=== PATIENT | female | born 1980 | race Caucasian/White ===

== ENCOUNTER → 2016-11-22 | Outpatient (CLI) | payer MEDICAID ==
[2016-11-22 15:57] LABS: Basophils % (A) 1 %; CH 28.2; CHCM 32.3; Eosinophils # (A) 0.2 k/uL (0-0.7); Eosinophils % (A) 3 %; HCT 40.1 % (34.0-46.0); HDW 2.59; HGB 12.8 gm/dL (11.4-16.0); Luc # (Auto) 0.08; Luc % (Auto) 1; Lymphocytes # (A) 1.4 k/uL (1.0-4.8); Lymphocytes % (A) 20 %; MCH 28.1 pg (25.0-35.0); MCV 87.7 fL (80.0-100.0); Mean Platelet Volume 8.3; Monocytes # (A) 0.4 k/uL (0-1.0); Monocytes % (A) 6 %; Neutrophils # (A) 4.9 k/uL (1.3-7.7); Neutrophils % (A) 70 %; RBC 4.57 m/uL (3.80-5.40); RDW 12.9 % (11.5-15.5); WBC (Perox) 6.96
[2016-11-22 15:58] LABS: ALT 62 U/L (9-52); AST 36 U/L (14-36); Alkaline Phosphatase 61 U/L (38-126); Amylase 31 U/L (30-110); Anion Gap 11 mmol/L; Blood Urea Nitrogen 20 mg/dL (7-17); Calcium 9.3 mg/dL (8.4-10.2); Carbon Dioxide 29 mmol/L (22-30); Chloride 101 mmol/L (98-107); Glucose 92 mg/dL (74-99); Non-African American GFR(MDRD) >60 (>60 ml/min/1.73 sqM); Potassium 3.9 mmol/L (3.5-5.1); Sodium 141 mmol/L (137-145); Total Bilirubin 0.4 mg/dL (0.2-1.3); Total Protein 7.3 g/dL (6.3-8.2)
== END | disposition home or self-care (01) ==
LOC: LABWHC1 15:23
PROVIDERS: ATTEND Physician Assistant
DX: R10.9 Unspecified abdominal pain (principal)
CPT/HCPCS: 36415; 80053; 82150; 83690; 85025

== ENCOUNTER → 2016-11-22 | Outpatient (CLI) | payer MEDICAID ==
--- NOTE | 2016-11-23 02:24 | US ---
EXAMINATION TYPE: US abdomen complete DATE OF EXAM: 11/22/2016 7:50 PM COMPARISON: Prior US in PACS CLINICAL HISTORY: Abd Pain R10.9. History of mononucleosis EXAM MEASUREMENTS: Liver Length: 15.6 cm Gallbladder Wall: 0.2 cm CBD: 0.5 cm Spleen: 12.9 cm Right Kidney: 10.3 x 4.8 x 6.4 cm Left Kidney: 10.5 x 4.0 x 4.5 cm cm TECHNOLOGIST IMPRESSION: Pancreas: Tail obscured by overlying bowel gas, visualized portions show no mass Liver: wnl Gallbladder: mobile stone visualized measuring 1.9 cm Evidence for sonographic Figueroa's sign: No CBD: wnl Spleen: Measuring upper limits of normal at 12.9 cm. Previously measured 13.4 cm on 09/22/2016 Right Kidney: No hydronephrosis or masses seen Left Kidney: No hydronephrosis or masses seen Upper IVC: wnl Abd Aorta: wnl The liver is homogenous. The intrahepatic portion of the IVC and proximal abdominal aorta are within normal limits. Common bile duct is unremarkable. The visualized portions of the pancreas are homoge nous. Kidneys are symmetric and free of hydronephrosis. No renal lesions are seen. IMPRESSION: There is a single large gallstone. No dilated ducts. No evidence of renal obstruction.
== END | disposition home or self-care (01) ==
LOC: RADUSWWP 19:46
PROVIDERS: ATTEND Internal Medicine
DX: K80.20 Calculus of gallbladder without cholecystitis without obstruction (principal)
CPT/HCPCS: 76700

== ENCOUNTER → 2016-11-30 | Outpatient (CLI) | payer MEDICAID ==
--- NOTE | 2016-11-30 15:14 | CT ---
EXAMINATION TYPE: CT abdomen w con DATE OF EXAM: 11/30/2016 3:04 PM HISTORY: LUQ pain CT DLP: 867.80mGycm Automated Exposure Control for Dose Reduction was Utilized. CONTRAST: CT scan of the abdomen is performed with IV Contrast, patient injected with 100 ml mL of Omnipaque 30 0. COMPARISON: Complete abdominal ultrasound November 22, 2016. FINDINGS: LUNG BASES: No significant abnormality is appreciated. LIVER/GB: Gallstone on ultrasound is less well-seen on CT. PANCREAS: No significant abnormality is seen. SPLEEN: Spleen is enlarged in size measuring 15.2 cm on coronal image 52, and has been prominent to m ildly enlarged on prior ultrasounds. ADRENALS: No significant abnormality is seen. KIDNEYS: No significant abnormality is seen. BOWEL: Oral contrast does not reach colonic level. There is no suspicious small or large bowel dilata tion. LYMPH NODES: No greater than 1cm abdominal lymph nodes are appreciated. OSSEOUS STRUCTURES: Some spurring in the lower thoracic spine is present. OTHER: No significant additional abnormality is seen. IMPRESSION: Splenomegaly is present perhaps slightly more prominent than prior studies otherwise unre markable study.
== END | disposition home or self-care (01) ==
LOC: RADCTMAIN 14:32
PROVIDERS: ATTEND Internal Medicine
DX: R16.1 Splenomegaly, not elsewhere classified (principal)
CPT/HCPCS: 74160; Q9967

== ENCOUNTER → 2017-10-04 | Outpatient (CLI) | payer MEDICAID ==
[2017-10-04 08:18] LABS: CH 28.3; CHCM 32.3; HCT 38.1 % (34.0-46.0); MCH 27.7 pg (25.0-35.0); MCHC 31.4 g/dL (31.0-37.0); Mean Platelet Volume 7.3; RBC 4.33 m/uL (3.80-5.40); RDW 12.9 % (11.5-15.5)
[2017-10-04 08:27] LABS: ALT 34 U/L (9-52); AST 25 U/L (14-36); Alkaline Phosphatase 53 U/L (38-126); Anion Gap 8 mmol/L; Blood Urea Nitrogen 14 mg/dL (7-17); Calcium 9.2 mg/dL (8.4-10.2); Carbon Dioxide 28 mmol/L (22-30); Chloride 104 mmol/L (98-107); Cholesterol 143 mg/dL (<200); Glucose 91 mg/dL (74-99); HDL Cholesterol 66 mg/dL (40-60); Non-African American GFR(MDRD) >60 (>60 ml/min/1.73 sqM); Potassium 4.1 mmol/L (3.5-5.1); Sodium 140 mmol/L (137-145); Total Bilirubin 0.4 mg/dL (0.2-1.3); Total Protein 6.5 g/dL (6.3-8.2)
== END | disposition home or self-care (01) ==
LOC: LABWHC1 07:31
PROVIDERS: ATTEND Physician Assistant
DX: Z00.00 Encounter for general adult medical examination without abnormal findings (principal); R63.5 Abnormal weight gain; Z13.220 Encounter for screening for lipoid disorders
CPT/HCPCS: 36415; 80053; 80061; 84439; 84443; 85027

== ENCOUNTER → 2018-01-20 | Outpatient (CLI) | payer MEDICAID ==
[2018-01-20 09:21] LABS: HCT 38.4 % (34.0-46.0); HGB 12.5 gm/dL (11.4-16.0); MCH 28.1 pg (25.0-35.0); MCHC 32.5 g/dL (31.0-37.0); MCV 86.6 fL (80.0-100.0); Mean Platelet Volume 7.6; Platelet Count 164 k/uL (150-450); RBC 4.44 m/uL (3.80-5.40); RDW 13.4 % (11.5-15.5); WBC 4.9 k/uL (3.8-10.6)
[2018-01-20 09:33] LABS: ALT 44 U/L (9-52); AST 39 U/L (14-36); Albumin 3.9 g/dL (3.5-5.0); Alkaline Phosphatase 53 U/L (38-126); Anion Gap 7 mmol/L; Blood Urea Nitrogen 18 mg/dL (7-17); Calcium 9.1 mg/dL (8.4-10.2); Carbon Dioxide 30 mmol/L (22-30); Chloride 104 mmol/L (98-107); Cholesterol 154 mg/dL (<200); Glucose 84 mg/dL (74-99); HDL Cholesterol 63 mg/dL (40-60); LDL Cholesterol,Calculated 80 mg/dL (0-99); Potassium 4.4 mmol/L (3.5-5.1); Sodium 141 mmol/L (137-145); Total Bilirubin 0.4 mg/dL (0.2-1.3); Total Protein 6.6 g/dL (6.3-8.2); Triglycerides 55 mg/dL (<150)
== END | disposition home or self-care (01) ==
LOC: LABWHC1 08:31
PROVIDERS: ATTEND Emergency Medicine
DX: R42 Dizziness and giddiness (principal)
CPT/HCPCS: 36415; 80053; 80061; 84443; 85027

== ENCOUNTER 2018-10-19 19:47 | Emergency (ER) | payer MEDICAID ==
[2018-10-19 19:53] VITALS: TEMP 98
--- NOTE | 2018-10-19 20:32 | ED ---
Chest Pain HPI - General Chief Complaint: Chest Pain Stated Complaint: Chest pain Time Seen by Provider: 10/19/18 20:04 Source: patient Mode of arrival: ambulatory Limitations: no limitations - History of Present Illness Initial Comments: Patient is a 37-year-old female presenting for chest pain. The patient states that she has had intermittent chest pain for the last month and there is no consistency to the quantity or quality although she does admit that it is worse whenever she has emotional times her her life. She states that it was especially bad because she recently lost her mother to multiple myeloma. However, today was she was at work, she started having the pain which is in her left breast dinner her left shoulder and then it was sharp. Sometimes it radiated to her neck but then it would radiate to the left flank. Again, there is no consistency to it and she denies any calf injury or recent manipulation by chiropractor. She also denies any infectious type symptoms such as coughing , congestion, fever/chills. - Related Data Home Medications Medication Instructions Recorded Confirmed Multivitamins, Thera [Multivitamin] 1 tab PO DAILY 05/07/14 10/19/18 Pantoprazole Sodium [Protonix] 1 tab PO DAILY 05/07/14 10/19/18 Calcium/Magnesium/Zinc 1 tab PO DAILY 10/19/18 10/19/18 [Pjcryro-Zafmfrugg-Pams Tablet] Doxycycline [Vibramycin] 100 mg PO BID 10/19/18 10/19/18 Tumeric (Unknown Dose) 1 tab PO DAILY 10/19/18 10/19/18 Allergies Allergy/AdvReac Type Severity Reaction Status Date / Time sulfamethoxazole Allergy Rash/Hives Verified 10/19/18 20:13 [From Bactrim] trimethoprim [From Bactrim] Allergy Rash/Hives Verified 10/19/18 20:13 Review of Systems ROS Statement: Those systems with pertinent positive or pertinent negative responses have been documented in the HPI. Constitutional: Negative for chills, fatigue and fever. HENT: Negative for congestion. Respiratory: Negative for chest tightness, shortness of breath and wheezing. Negative for cough Cardiovascular: Positive for chest pain and negative for palpitations. Gastrointestinal: Negative for abdominal pain. Negative for abdominal distention , diarrhea, nausea and vomiting. Genitourinary: Negative for dysuria. Musculoskeletal: Negative for back pain, neck pain and neck stiffness. Skin: Negative for color change. Neurological: Negative for dizziness, speech difficulty, weakness and light- headedness. Psychiatric/Behavioral: Negative for agitation and confusion. Negative for anxiety ROS Other: All systems not noted in ROS Statement are negative. EKG Findings - EKG Comments: EKG Findings:: EKG shows sinus bradycardia with a rate of 57 bpm, OK interval 144, QRS 86, QTC 416. Past Medical History Additional Past Medical History / Comment(s): palpitations History of Any Multi-Drug Resistant Organisms: None Reported Past Surgical History: No Surgical Hx Reported Past Psychological History: No Psychological Hx Reported Smoking Status: Never smoker Past Alcohol Use History: None Reported Past Drug Use History: None Reported General Exam - General Exam Comments Initial Comments: Constitutional: Pt is oriented to person, place, and time. Pt appears well- developed and well-nourished. No distress. HENT: Head: Normocephalic and atraumatic. Eyes: EOM are normal. Neck: Normal range of motion. Neck supple. Cardiovascular: Normal rate, regular rhythm, S1 normal, S2 normal and normal heart sounds. Exam reveals no gallop and no friction rub. No murmur heard. Pulmonary/Chest: Effort normal and breath sounds normal. No tachypnea and no bradypnea. No respiratory distress. No wheezes or rales noted. Abdominal: Soft. Bowel sounds are normal. Pt exhibits no shifting dullness, no distension, no pulsatile liver, no fluid wave, no abdominal bruit and no ascites. There is no tenderness. There is no rigidity, no rebound, no guarding, no tenderness at McBurney's point and negative Figueroa's sign. Musculoskeletal: Normal range of motion. Neurological: Pt is alert and oriented to person, place, and time. No cranial nerve deficit. Skin: Skin is warm and dry. No rash noted. Pt is not diaphoretic. No erythema. No pallor. Psychiatric: Pt has a normal mood and affect. Pt behavior is normal. Thought content normal. Limitations: no limitations Course Vital Signs 10/19/18 10/19/18 10/19/18 19:49 20:08 22:05 Temperature 98.0 F Pulse Rate 62 55 L Pulse Rate [ 56 L Credit Intern ] Respiratory 18 12 Rate Blood Pressure 123/80 111/64 O2 Sat by Pulse 100 98 Oximetry 10/19/18 23:22 Temperature Pulse Rate 57 L Pulse Rate [ Credit Intern ] Respiratory 15 Rate Blood Pressure 102/58 O2 Sat by Pulse 96 Oximetry Chest Pain MDM - MDM Laboratory studies showed that there was no significant electrolyte derangements and from a cardiac standpoint, d-dimer was noted to be negative as well as serial troponins. EKG also had no significant findings. Patient currently refused urine test as she states that she has had her tubes tied. Because the patient has a low heart score, patient can be discharged with close follow-up. It was explained that while there does not appear to be an emergent process, the etiology of the symptoms are still unclear but possibly related to musculoskeletal strain and may need further workup as an outpatient if symptoms continue. Explained all labs and diagnostic test results and that we will discharge the patient home and patient is to follow up with PCP in 1-2 days and return to the ED if symptoms worsen. Pt is agreeable to plan. Disposition Clinical Impression: Chest pain Disposition: HOME SELF-CARE Condition: Good Instructions: Chest Pain (ED) Is patient prescribed a controlled substance at d/c from ED?: No Referrals: Dionicio Saucedo MD [Primary Care Provider] - 1-2 days Time of Disposition: 00:11
[2018-10-19 21:01] LABS: ALT 46 U/L (9-52); AST 36 U/L (14-36); Alkaline Phosphatase 57 U/L (38-126); Anion Gap 8 mmol/L; Blood Urea Nitrogen 12 mg/dL (7-17); Calcium 9.1 mg/dL (8.4-10.2); Carbon Dioxide 26 mmol/L (22-30); Chloride 104 mmol/L (98-107); Glucose 93 mg/dL (74-99); Magnesium 1.9 mg/dL (1.6-2.3); Potassium 3.8 mmol/L (3.5-5.1); Sodium 138 mmol/L (137-145); Total Bilirubin 0.3 mg/dL (0.2-1.3); Total Protein 6.9 g/dL (6.3-8.2)
[2018-10-19 21:05] LABS: D-Dimer 0.55 mg/L FEU (<0.60); INR 0.9 (<1.2); Partial Thromboplastin Time 26.7 sec (22.0-30.0); Prothrombin Time 10.1 sec (9.0-12.0)
--- NOTE | 2018-10-19 21:05 | XR ---
EXAMINATION TYPE: XR chest 2V DATE OF EXAM: 10/19/2018 COMPARISON: 12/29/2012 HISTORY: Chest pain TECHNIQUE: Frontal and lateral views of the chest are obtained. FINDINGS: Heart and mediastinum are normal. Lungs are clear. Diaphragm is normal. Bony thorax is int act. IMPRESSION: Normal chest. No change.
[2018-10-19 21:16] LABS: Basophils % (A) 1 %; Eosinophils # (A) 0.2 k/uL (0-0.7); Eosinophils % (A) 2 %; HGB 12.1 gm/dL (11.4-16.0); Lymphocytes # (A) 1.9 k/uL (1.0-4.8); Lymphocytes % (A) 27 %; MCH 27.4 pg (25.0-35.0); MCHC 30.9 g/dL (31.0-37.0); MCV 88.5 fL (80.0-100.0); Mean Platelet Volume 6.8; Monocytes # (A) 0.4 k/uL (0-1.0); Monocytes % (A) 5 %; Neutrophils # (A) 4.3 k/uL (1.3-7.7); Neutrophils % (A) 62 %; Platelet Count 187 k/uL (150-450); RBC 4.41 m/uL (3.80-5.40); WBC 6.9 k/uL (3.8-10.6)
[2018-10-20 00:26] VITALS: BP 118/66; PULSE 56; RESP 18
== END 2018-10-20 00:28 | disposition home or self-care (01) ==
LOC: EC 19:47
DX: R07.9 Chest pain, unspecified (principal); Z79.899 Other long term (current) drug therapy; Z88.2 Allergy status to sulfonamides
CPT/HCPCS: 36415; 71046; 80053; 83735; 83880; 84484; 85025; 85379; 85610; 85730; 93005; 99285

== ENCOUNTER → 2018-10-30 | Outpatient (CLI) | payer MEDICAID ==
--- NOTE | 2018-10-30 10:37 | US ---
EXAMINATION TYPE: US gallbladder DATE OF EXAM: 10/30/2018 COMPARISON: CT 11/30/2016, US 11/22/2016 CLINICAL HISTORY: R07.9 Chest pain. EXAM MEASUREMENTS: Liver Length: 16.9 cm Gallbladder Wall: 0.2 cm CBD: 0.5 cm Right Kidney: 11.5 x 5.7 x 5.9 cm Pancreas: Tail obscured by overlying bowel gas, visualized portions wnl Liver: Homogeneous Gallbladder: Stone visualized measuring 1.8 cm Evidence for sonographic Figueroa's sign: No CBD: wnl, distal portion obscured by bowel gas Right Kidney: No hydronephrosis or masses seen IMPRESSION: Cholelithiasis without sonographic evidence of acute cholecystitis.
== END | disposition home or self-care (01) ==
LOC: RADUSWWP 08:15
PROVIDERS: ATTEND Internal Medicine
DX: K80.20 Calculus of gallbladder without cholecystitis without obstruction (principal)
CPT/HCPCS: 76705

== ENCOUNTER → 2018-10-31 | Outpatient (CLI) | payer MEDICAID ==
--- NOTE | 2018-10-31 11:49 | ECHOF ---
Referral Reason:R07.9 Chest pain MEASUREMENTS -------- HEIGHT: 170.2 cm WEIGHT: 131.5 kg BP: RVIDd: 3.0 cm (< 3.3) IVSd: 1.2 cm (0.6 - 1.1) LVIDd: 4.9 cm (3.9 - 5.3) LVPWd: 1.3 cm (0.6 - 1.1) IVSs: 1.5 cm LVIDs: 3.7 cm LVPWs: 1.5 cm LA Diam: 3.2 cm (2.7 - 3.8) LAESV Index (A-L): 28.05 ml/m Ao Diam: 3.1 cm (2.0 - 3.7) AV Cusp: 2.0 cm (1.5 - 2.6) LA Diam: 3.9 cm (2.7 - 3.8) MV EXCURSION: 21.866 mm (> 18.000) MV EF SLOPE: 108 mm/s (70 - 150) EPSS: 0.1 cm MV E Jas: 0.98 m/s MV DecT: 176 ms MV A Jas: 0.50 m/s MV E/A Ratio: 1.95 RAP: 5.00 mmHg RVSP: 21.36 mmHg FINDINGS -------- Sinus rhythm. This was a technically good study. LV size, wall thickness and systolic function are normal, with an EF greater than 55%. The left rissa tricular size is normal. The right ventricle is normal in size. The left atrial size is normal. Normal LA size by volume 22+/-6 ml/m2. The right atrial size is normal. The aortic valve is trileaflet, and appears structurally normal. No aortic stenosis or regurgitation. The mitral valve is normal. Mild mitral regurgitation is present. Trace tricuspid regurgitation present. There is no evidence of pulmonary hypertension. The right ventricular systolic pressure, as measured by Doppler, is 21.36mmHg. There is no pulmonic regurgitation present. The aortic root size is normal. There is no pericardial effusion. CONCLUSIONS -------- 1. Sinus rhythm. 2. This was a technically good study. 3. LV size, wall thickness and systolic function are normal, with an EF greater than 55%. 4. The left ventricular size is normal. 5. The left atrial size is normal. 6. Normal LA size by volume 22+/-6 ml/m2. 7. The right atrial size is normal. 8. The aortic valve is trileaflet, and appears structurally normal. No aortic stenosis or regurgitati on. 9. Mild mitral regurgitation is present. 10. Trace tricuspid regurgitation present. 11. There is no evidence of pulmonary hypertension. 12. There is no pulmonic regurgitation present. 13. The aortic root size is normal. 14. There is no pericardial effusion. MINK FARMER: Soo Glover RDCS
== END | disposition home or self-care (01) ==
LOC: RADECHMAIN 08:26
PROVIDERS: ATTEND Internal Medicine
DX: I34.0 Nonrheumatic mitral (valve) insufficiency (principal); R07.9 Chest pain, unspecified
CPT/HCPCS: 93306

== ENCOUNTER → 2019-01-16 | Outpatient (CLI) | payer MEDICAID ==
[2019-01-16 17:41] LABS: Magnesium 1.9 mg/dL (1.6-2.3)
--- NOTE | 2019-01-16 18:31 | XR ---
Lumbosacral spine HISTORY: Chronic low back pain, bilateral foot numbness 5 views of the lumbosacral spine Lumbar vertebral bodies show preserved height and bone mineralization. Minimal grade 1 anterolisthesi s L4-5. There is no evident spondylolysis. Sclerosis present in the posterior elements of the lower l umbar spine compatible with facet arthropathy. Some loss of disc height present L5-S1, there is mild spondylosis. IMPRESSION: Degenerative disc disease, facet arthropathy.
[2019-01-16 23:51] LABS: Folate, Serum 11.1 ng/mL
== END ==
LOC: RADXRMAIN 13:17
PROVIDERS: ATTEND Physician Assistant
DX: M51.36 Other intervertebral disc degeneration, lumbar region (principal); M46.96 Unspecified inflammatory spondylopathy, lumbar region; R20.2 Paresthesia of skin
CPT/HCPCS: 72110; 82607; 82746; 83735; 84443

== ENCOUNTER → 2019-10-08 | Outpatient (CLI) | payer MEDICAID ==
[2019-10-08 11:13] LABS: Appearance,Urine Clear (Clear); Bilirubin,Urine Negative (Negative); Blood,Urine Negative (Negative); Color,Urine Light Yellow; Glucose,Urine (UA) Negative (Negative); HCT 40.1 % (34.0-46.0); HGB 13.1 gm/dL (11.4-16.0); Ketones,Urine Negative (Negative); Leukocyte Esterase,Urine Negative (Negative); MCH 28.2 pg (25.0-35.0); MCHC 32.7 g/dL (31.0-37.0); Mean Platelet Volume 7.2; Nitrite,Urine Negative (Negative); Platelet Count 207 k/uL (150-450); Protein,Urine Negative (Negative); RBC 4.67 m/uL (3.80-5.40); RDW 12.7 % (11.5-15.5); Specific Gravity,Urine 1.016 (1.001-1.035); Urobilinogen,Urine <2.0 mg/dL (<2.0); WBC 6.6 k/uL (3.8-10.6)
[2019-10-08 15:59] LABS: African American GFR (CKD) 127.4 (60.0-200.0); Albumin 4.3 g/dL (3.80-4.90); Albumin/Globulin Ratio 2.05 (1.60-3.17); Anion Gap 6.5 mmol/L (4.00-12.00); BUN/Creat Ratio 21.43 Ratio (12.00-20.00); Carbon Dioxide 26.5 mmol/L (21.6-31.8); Chol/HDL Ratio 2.81; Globulin 2.1 g/dL (1.6-3.3); LDL Cholesterol,Calculated 86.2 mg/dL (0.0-131.0); Non-African American GFR(CKD) 109.9 (60.0-200.0); Potassium 4.5 mmol/L (3.5-5.5); Total Bilirubin 0.3 mg/dL (0.3-1.2); Total Protein 6.4 g/dL (6.2-8.2); VLDL Calculation 18.8 mg/dL (5.00-40.00)
[2019-10-08 16:06] LABS: T4, Free (Free Thyroxine) 1.2 ng/dL (0.80-1.80)
== END | disposition home or self-care (01) ==
LOC: LABWHC1 10:26
PROVIDERS: ATTEND Physician Assistant
DX: Z00.00 Encounter for general adult medical examination without abnormal findings (principal); R53.83 Other fatigue; Z13.220 Encounter for screening for lipoid disorders
CPT/HCPCS: 36415; 80053; 80061; 81003; 82306; 83036; 84439; 84443; 85027

== ENCOUNTER 2021-02-02 18:57 | Emergency (ER) | payer OTHER, MEDICAID ==
[2021-02-02 19:07] VITALS: BP 145/74; PULSE 64; RESP 18; TEMP 97.7
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
== END 2021-02-02 21:28 | disposition home or self-care (01) ==
LOC: EC 18:57
DX: M54.5 Low back pain (principal); M25.571 Pain in right ankle and joints of right foot; M25.561 Pain in right knee; M54.2 Cervicalgia; M54.6 Pain in thoracic spine; V89.2XXA Person injured in unspecified motor-vehicle accident, traffic, initial encounter; Y92.410 Unspecified street and highway as the place of occurrence of the external cause
CPT/HCPCS: 72082; 99283

== ENCOUNTER → 2021-08-10 | Outpatient (CLI) | payer MEDICAID ==
--- NOTE | 2021-08-14 09:47 | MM ---
Reason for exam: screening (asymptomatic). Baseline mammogram. History: Took hormonal contraceptives for 4 years beginning at age 24. Physical Findings: Nurse did not find any significant physical abnormalities on exam. MG 3D Screening Mammo W/Cad Bilateral CC and MLO view(s) were taken. There are scattered fibroglandular densities. There is no discrete abnormality. ASSESSMENT: Benign, BI-RAD 2 RECOMMENDATION: Routine screening mammogram of both breasts in 1 year.
== END | disposition home or self-care (01) ==
LOC: RADMAMWWP 12:44
PROVIDERS: ATTEND Family Medicine
DX: Z12.31 Encounter for screening mammogram for malignant neoplasm of breast (principal)
CPT/HCPCS: 77063; 77067

== ENCOUNTER → 2021-10-13 | Outpatient (CLI) | payer MEDICAID ==
--- NOTE | 2021-10-13 09:19 | US ---
EXAMINATION TYPE: US transvaginal DATE OF EXAM: 10/13/2021 COMPARISON: NONE CLINICAL HISTORY: 40-year-old female R10.2 Pelvic Pain N94.6 Dysmenorrhea, N93.9 Abnormal uterine. In creasing TECHNIQUE: Transvaginal (TV). Date of LMP: 10/02/21 FINDINGS: EXAM MEASUREMENTS: Uterus: 8.9 x 5.4 x 4.3 cm Endometrial Stripe: 1.2 cm Right Ovary: 3.2 x 2.0 x 2.0 cm Left Ovary: 4.3 x 3.0 x 3.3 cm 1. Uterus: Anteverted and otherwise wnl. Tiny 4 mm cervical nabothian cyst. 2. Endometrium: Appears slightly heterogeneous. Mildly thickened. 3. Right Ovary: 2.1 cm hypoechoic area. 4. Left Ovary: anechoic area 2.7 x 1.6 x 2.0 cm 5. Bilateral Adnexa: wnl 6. Posterior cul-de-sac: wnl IMPRESSION: 1. Slightly heterogeneous and mildly thickened endometrial stripe measuring 1.2 cm short correspond t o the secretory phase of the menstrual cycle. Clinically correlate. Given patient's symptoms and the slight heterogeneity, follow-up in 6-8 weeks to reassess the stripe. 2. A 2.7 cm dominant follicle or functional cyst of the left ovary. A 2.1 cm hypoechoic oval area in the right ovary could represent a hemorrhagic cyst/follicle. This should also be reassessed in 6-8 w [place] follow-up.
[2021-10-13 09:24] LABS: HCT 38.7 % (34.0-46.0); HGB 11.8 gm/dL (11.4-16.0); Hypochromasia Moderate; MCH 26.5 pg (25.0-35.0); MCHC 30.5 g/dL (31.0-37.0); Mean Platelet Volume 7.3; Platelet Count 204 k/uL (150-450); RBC 4.44 m/uL (3.80-5.40); RDW 13.7 % (11.5-15.5); WBC 6.4 k/uL (3.8-10.6)
[2021-10-13 09:35] LABS: ALT 19 U/L (4-34); AST 26 U/L (14-36); African American GFR (CKD) >90 (>60 ml/min/1.73 sqM); Albumin 3.7 g/dL (3.5-5.0); Alkaline Phosphatase 74 U/L (38-126); Anion Gap 6 mmol/L; Blood Urea Nitrogen 15 mg/dL (7-17); Calcium 8.9 mg/dL (8.4-10.2); Carbon Dioxide 24 mmol/L (22-30); Chloride 106 mmol/L (98-107); Glucose 102 mg/dL (74-99); Non-African American GFR(CKD) >90 (>60 ml/min/1.73 sqM); Potassium 4.2 mmol/L (3.5-5.1); Sodium 136 mmol/L (137-145); Total Bilirubin 0.5 mg/dL (0.2-1.3); Total Protein 6.6 g/dL (6.3-8.2)
[2021-10-13 09:52] LABS: HCG,Quantitative Serum <2.4 mIU/mL; T4, Free (Free Thyroxine) 0.93 ng/dL (0.78-2.19)
[2021-10-13 15:23] LABS: Chol/HDL Ratio 3.04 Ratio; LDL Cholesterol,Calculated 103.2 mg/dL (0.0-131.0)
== END | disposition home or self-care (01) ==
LOC: RADUSWWP 08:00
PROVIDERS: ATTEND Obstetrics & Gynecology
DX: R93.89 Abnormal findings on diagnostic imaging of other specified body structures (principal)
CPT/HCPCS: 36415; 76830; 80053; 80061; 84439; 84443; 84702; 85027

== ENCOUNTER → 2021-11-30 | Outpatient (CLI) | payer MEDICAID ==
[2021-11-30 23:21] LABS: Basophils # (A) 0.05 X 10*3/uL (0.00-0.10); Basophils % (A) 0.8 %; Eosinophils # (A) 0.21 X 10*3/uL (0.04-0.35); Eosinophils % (A) 3.2 %; HCT 38.6 % (37.2-46.3); HGB 11.8 g/dL (12.0-15.0); Immature Grans, Automated 0.3 %; Lymphocytes # (A) 1.52 X 10*3/uL (0.90-5.00); Lymphocytes % (A) 22.9 %; MCHC 30.6 g/dL (32.0-37.0); MCV 85.2 fL (80.0-97.0); Mean Platelet Volume 10.1 fL (9.5-12.2); Monocytes # (A) 0.48 X 10*3/uL (0.20-1.00); Monocytes % (A) 7.2 %; NRBC Per 100 WBC 0 /100 WBCS (0.0-0.0); Neutrophils # (A) 4.37 X 10*3/uL (1.80-7.70); Neutrophils % (A) 65.6 %; Platelet Count 234 X 10*3/uL (140-440); RBC 4.53 X 10*6/uL (4.10-5.20); RDW 13.2 % (11.5-14.5); WBC 6.65 X 10*3/uL (4.50-10.00)
== END | disposition home or self-care (01) ==
LOC: LABPAT 16:10
PROVIDERS: ATTEND Obstetrics & Gynecology
DX: Z01.812 Encounter for preprocedural laboratory examination (principal); N92.0 Excessive and frequent menstruation with regular cycle; N93.8 Other specified abnormal uterine and vaginal bleeding
CPT/HCPCS: 36415; 85025

== ENCOUNTER → 2021-12-04 | Day surgery (SDC) | payer MEDICAID, OTHER ==
[2021-11-30 10:28] VITALS: BMI 58.1
--- NOTE | 2021-11-30 13:47 | HP ---
HISTORY AND PHYSICAL HISTORY OF PRESENT ILLNESS: The patient is a 40-year-old 2, para 2-0-0-2, who presents to the office with a complaint of significantly dysfunctional uterine bleeding as well as menorrhagia. She initially had a discussion regarding options for treatment and has requested endometrial ablation. She underwent endometrial biopsy in the office, which was entirely negative. She was initially scheduled several weeks ago, but had a child come down with COVID and had to reschedule. PAST MEDICAL HISTORY: Significant for reflux, hypertension, some anxiety and depression, obesity, polycystic ovarian syndrome. PAST SURGICAL HISTORY: Significant only for wisdom teeth extraction. OBSTETRICAL HISTORY: 2, para 2-0-0-2 with two term vaginal deliveries without complications. Method of contraception is vasectomy. GYNECOLOGIC HISTORY: Unremarkable, with no history of any infections to include STDs. FAMILY HISTORY: Noncontributory. 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 She is a nonsmoker and denies any alcohol or other social concerns of any concern. CURRENT MEDICATIONS: Current medications include Protonix daily and Zoloft 50 mg daily. ALLERGIES: BACTRIM caused muscle cramps. REVIEW OF SYSTEMS: Confined to history of present illness. PHYSICAL EXAMINATION: Vital signs are stable. The patient is afebrile. In general, this is a well- developed, moderately obese white female in no acute distress. Her heart has a regular rhythm and rate without murmur. Her lungs are clear to auscultation bilaterally in all [place]. Her abdomen is nondistended, has normoactive bowel sounds, is soft, nontender, and without any palpable masses, hepatosplenomegaly, or hernias. Her extremities are without any cyanosis, clubbing or edema and are nontender to palpation bilaterally. Pelvic examination demonstrates normal external genitalia and BUS with normal vaginal mucosa and cervix. There is no cervical motion tenderness. The uterus is approximately 4 to 5 weeks in size, mid plane, mobile, nontender, normal in shape. The adnexa are normal and nontender without mass bilaterally. ASSESSMENT AND PLAN: Menorrhagia with dysfunctional uterine bleeding: We discussed multiple different options for treatment and she has opted to proceed with endometrial ablation, either NovaSure or Melvi, whichever is available. The risks and complications of the procedure have been thoroughly discussed, including the risks for bleeding, bleeding requiring transfusion, infection, and injury to local structures to specifically include uterine perforation, Asherman syndrome and subsequent hematometra. She has understood all of these concerns and has agreed to proceed. We are scheduled for surgery on the morning of December 04, 2021, for diagnostic hysteroscopy with most likely NovaSure endometrial ablation. MMODL / IJN: [id number] /
[~2021-12-04] MED LIST: Acetaminophen-Codeine 300-30mg TAB PO PRN; DEXAMETHASONE SOD PHOSPHATE 4 MG/ML 1 ML VIAL IV ONE; GLYCOPYRROLATE 0.2 MG/ML 2 ML VIAL ONE; HYDROmorphone 0.5 MG/0.5 ML SYRINGE IVP PRN; IBUPROFEN 600 MG TAB PO PRN; KETOROLAC 15 MG/ML 1 ML VIAL ONE; KETOROLAC 30 MG/ML 1 ML VIAL IVP PRN; LACTATED RINGERS 1,000 ML IV SCH; LIDOCAINE 1% (10MG/ML) FOR IV START INTRADERMA PRN; LIDOCAINE 1% INJ 10MG/ML (20 ML MDV) ONE; METOCLOPRAMIDE 5 MG/ML 2 ML VIAL IVP PRN; MIDAZOLAM 2 MG/2 ML VIAL ONE; NEOSTIGMINE 1 MG/ML 10 ML VIAL ONE; ONDANSETRON 4 MG/2 ML VIAL IVP ONE; ONDANSETRON 4 MG/2 ML VIAL IVP PRN; PROPOFOL 10 MG/ML 20 ML VIAL IV ONE; Pre Op ABX Message 1 EACH MISC MISCELLANE ONE; ROCURONIUM 10 MG/ML (5 ML VIAL) IV ONE; SCOPOLAMINE 1.5MG/72HR PATCH TRANSDERM ONE; SIMETHICONE 80 MG CHEWABLE PO PRN; SUCCINYLCHOLINE CHLORIDE VIAL 200 MG/10 ML VIAL IV ONE; diphenhydrAMINE 50 MG/ML 1 ML VIAL IVP PRN; fentaNYL (PF) 50 MCG/ML 2 ML AMP ONE
--- NOTE | 2021-12-04 09:48 | P.OP ---
Date of Procedure: 12/04/21 Preoperative Diagnosis: 1. Menorrhagia #2. Dysfunctional uterine bleeding Postoperative Diagnosis: Same Procedure(s) Performed: #1. Diagnostic hysteroscopy #2. NovaSure endometrial ablation Anesthesia: NATASHA Surgeon: Jose Alfredo Pryor Estimated Blood Loss (ml): 5 IV fluids (ml): 400 Urine output (ml): 75 Pathology: none sent Condition: stable Disposition: PACU Operative Findings: Preoperative pelvic examination demonstrated roughly 4-5 week midplane to slightly anteverted mobile normal shaped uterus with normal adnexa bilaterally. Intraoperatively, the uterine cavity was noted to be without pathology using the hysteroscope and the bilateral tubal ostia were seen. There is no evidence of fibroids or other concerns. The settings for the NovaSure tool after a sounded length of 8.5 cm and a cervical length of 3 cm were a length of 5.5 cm, a width of 4.4 cm for a total power 133 W. After a run time of 51 seconds, the base unit read "procedure complete." The postprocedural result appeared to be excellent. The patient is a borderline candidate for vaginal hysterectomy should become necessary and would likely benefit from a da Gilbert approach should it become necessary. Description of Procedure: The patient was prepped and draped in usual fashion after general endotracheal anesthesia was administered by the anesthesiologist. A weighted speculum was placed and the bladder drained of approximately 75 mL of clear jewell urine. The anterior lip the cervix was grasped with a single-tooth tenaculum and uterus sounded to approximate 8.5 cm with a cervical length of approximately 3 cm. S erial dilation was carried out to admit the diagnostic hysteroscope which was placed into the cavity and the cavity distended with saline. The bilateral tubal ostia were seen and there was no evidence of any pathology throughout cavity though there was some shaggy endometrium present. The scope was set aside and the NovaSure tool introduced into the endometrial cavity, opened, and seated well. The settings for the tool were as noted above with a length of 5.5 cm, a width of 4.4 cm, for a total power of 133 W. The cavity check was attempted and passed without difficulty. The tool was enabled, and the run was started. After total run time of 51 seconds, the base unit read "procedure complete." The 2 was closed, removed, and discarded. The diagnostic hysteroscope was replaced within the parametrial cavity and the findings appear to be excellent. All instrumentation was then removed. There is no ongoing bleeding from either the cervix nor from the tenaculum site. All sponge, ins trument, needle counts were correct. Assessment a blood loss for the case was less than 5 mL. There were no complications. The patient tolerated the procedure well and proceeded to the recovery room in stable condition.
[2021-12-04 10:50] VITALS: RESP 16; TEMP 97.6
[2021-12-04 12:23] VITALS: BP 129/76; PULSE 58
== END | disposition home or self-care (01) ==
LOC: OR 07:47
PROVIDERS: ATTEND Obstetrics & Gynecology
DX: N92.0 Excessive and frequent menstruation with regular cycle (principal); N93.8 Other specified abnormal uterine and vaginal bleeding; F32.9 Major depressive disorder, single episode, unspecified; E66.01 Morbid (severe) obesity due to excess calories; K21.9 Gastro-esophageal reflux disease without esophagitis
CPT/HCPCS: 58563; 81025; J2250; J0330; J1100; J2710; J2405; J2001; J3010; J1885; J2704; J1790

== ENCOUNTER → 2022-07-20 | Outpatient (CLI) | payer MEDICAID ==
--- NOTE | 2022-07-20 12:14 | US ---
EXAMINATION TYPE: US abdomen complete DATE OF EXAM: 07/20/2022 COMPARISON: CT, US CLINICAL HISTORY: R10.2 PELVIC PAIN R10.31 RLQ PAIN. Pain in the LLQ and LUQ x 4-5 months. Hx gallsto ne. Hx enlarged spleen. TECHNIQUE: Multiple sonographic images of the abdomen are obtained. FINDINGS: EXAM MEASUREMENTS: Liver Length: 17.0 cm . Normal less than 15.5 cm Gallbladder Wall: 0.21 cm CBD: 0.36 cm Spleen: 13.3 cm. Normal less than 12.5 cm. Right Kidney: 11.8 x 7.6 x 5.3 cm Left Kidney: 11.9 x 6.1 x 4.3 cm HOLLOW TILE PARTITION ERECTOR NOTES: Exam is limited due to gas and patient body habitus. Pancreas: Limited visibility. Liver: Appears coarse in echotexture with increased echogenicity. Measures upper limits of normal. Gallbladder: Hyperechoic focus seen with posterior shadowin.3 x 1.9 x 1.8 cm. Evidence for sonographic Figueroa's sign: No CBD: Appears wnl Spleen: Appears enlarged. Right Kidney: No hydronephrosis or masses seen Left Kidney: No hydronephrosis or masses seen Upper IVC: Appears wnl Abd Aorta: Appears wnl. Iliacs were obscured. . IMPRESSION: 1. Minimal hepatosplenomegaly. 2. Cholelithiasis
--- NOTE | 2022-07-20 13:42 | US ---
EXAMINATION TYPE: US pelvis complete transvag DATE OF EXAM: 07/20/2022 COMPARISON: CT, US 10/13/2021 CLINICAL HISTORY: R10.2 PELVIC PAIN R10.31 RLQ PAIN. Stabbing pelvic pain. Hx uterine ablation in Fe ruary of 2021. . TECHNIQUE: Transvaginal (TV) and Transabdominal (TA) . Transabdominal sonographic images of the pel vis were acquired. Transvaginal sonographic images were medically necessary to better assess the fol lowing anatomy: Uterus and ovaries, TV per order. Date of LMP: 11/02/2021 EXAM MEASUREMENTS: Uterus: 8.5 x 5.8 x 3.8 cm Endometrial Stripe: 0.57 cm Right Ovary: 4.1 x 2.5 x 2.6 cm Left Ovary: 3.4 x 1.8 x 2.3 cm 1. Uterus: Anteverted Appears heterogeneous. Subcentimeter anechoic areas seen in cervix. Finding s can be compatible with nabothian cysts. 2. Endometrium: Limited visibility 3. Right Ovary: Complex area seen: 2.6 x 1.8 x 1.9 cm. This is largely anechoic without posterior wa ll enhancement. Resolving cyst could be considered within the differential. Follow-up is recommended. 4. Left Ovary: Appears wnl. Spectral, color and waveform doppler imaging shows arterial and venous flow within the ovaries; the re is no evidence for ovarian torsion. Performed due to patient states stabbing pain within the pelvi s. 5. Bilateral Adnexa: Free fluid seen in the left adnexa. 6. Posterior cul-de-sac: Minimal fluid seen. IMPRESSION: 1. Mildly complex cyst left ovary. Follow-up exam in 6 weeks or following the next menstrual period t o be performed. 2. No suspicious acute changes identified.
[2022-07-20 14:28] LABS: Basophils # (A) 0.06 X 10*3/uL (0.00-0.10); Basophils % (A) 0.8 %; Eosinophils # (A) 0.19 X 10*3/uL (0.04-0.35); Eosinophils % (A) 2.5 %; HCT 38.1 % (37.2-46.3); HGB 12.3 g/dL (12.0-15.0); Immature Grans, Automated 0.5 %; Lymphocytes # (A) 1.56 X 10*3/uL (0.90-5.00); Lymphocytes % (A) 20.9 %; MCH 27.1 pg (27.0-32.0); MCHC 32.3 g/dL (32.0-37.0); MCV 83.9 fL (80.0-97.0); Monocytes # (A) 0.55 X 10*3/uL (0.20-1.00); Monocytes % (A) 7.4 %; NRBC Per 100 WBC 0 /100 WBCS (0.0-0.0); Neutrophils # (A) 5.07 X 10*3/uL (1.80-7.70); Neutrophils % (A) 67.9 %; Platelet Count 186 X 10*3/uL (140-440); RBC 4.54 X 10*6/uL (4.10-5.20); RDW 13.8 % (11.5-14.5); WBC 7.47 X 10*3/uL (4.50-10.00)
[2022-07-20 16:10] LABS: ALT 27 U/L (8-44); AST 22 U/L (13-35); Albumin 3.9 g/dL (3.8-4.9); Albumin/Globulin Ratio 1.95 (1.60-3.17); Alkaline Phosphatase 77 U/L (41-126); BUN/Creat Ratio 15.23 Ratio (12.00-20.00); Blood Urea Nitrogen 10.1 mg/dL (9.0-27.0); Calcium 8.8 mg/dL (8.7-10.3); Carbon Dioxide 24.7 mmol/L (20.0-27.5); Chloride 105 mmol/L (96-109); Chol/HDL Ratio 3.05 Ratio; Glucose 101 mg/dL (70-110); LDL Cholesterol,Calculated 98.9 mg/dL (0.0-131.0); Non-African American GFR(CKD) 109.6 (60.0-200.0); Potassium 4.1 mmol/L (3.5-5.5); Sodium 141 mmol/L (135-145); Total Protein 5.9 g/dL (6.2-8.2); VLDL Calculation 18.78 mg/dL (5.00-40.00)
[2022-07-20 22:25] LABS: Appearance,Urine Clear (Clear); Bilirubin,Urine Negative (Negative); Blood,Urine Negative (Negative); Color,Urine Yellow (Yellow); Ketones,Urine Negative (Negative); Nitrite,Urine Negative (Negative); Specific Gravity,Urine 1.007 (1.001-1.030); Urobilinogen,Urine 0.2 (0.2,1.0)
[2022-07-20 23:30] LABS: Bacteria,Urine None Seen /HPF (None Seen)
== END | disposition home or self-care (01) ==
LOC: RADUSWWP 09:44
PROVIDERS: ATTEND Family Medicine
DX: R16.2 Hepatomegaly with splenomegaly, not elsewhere classified (principal); K80.20 Calculus of gallbladder without cholecystitis without obstruction; R10.2 Pelvic and perineal pain; R10.31 Right lower quadrant pain
CPT/HCPCS: 76700; 76830; 76856; 80053; 80061; 81001; 82306; 83036; 84439; 84443; 84481; 85025

== ENCOUNTER → 2022-10-18 | Outpatient (CLI) | payer MEDICAID ==
--- NOTE | 2022-10-18 16:05 | US ---
EXAMINATION TYPE: US transvaginal DATE OF EXAM: 10/18/2022 COMPARISON: 07/20/2022 CLINICAL HISTORY: 41-year-old female R10.2 PELVIC AND PERINEAL PAIN. Short term follow up to right ov merissa cyst TECHNIQUE: Transvaginal (TV) Date of LMP: 09/29/2022 FINDINGS: EXAM MEASUREMENTS: Uterus: 7.2 x 3.5 x 4.0 cm Endometrial Stripe: 0.39 cm Right Ovary: 1.9 x 1.5 x 1.3 cm Left Ovary: 3.5 x 2.4 x 2.7 cm 1. Uterus: Anteverted. Mildly heterogeneous myometrium. 2. Endometrium: wnl 3. Right Ovary: wnl 4. Left Ovary: 2.1 x 1.6 x 1.5cm thick walled crenulated cyst with peripheral vascularity. 5. Bilateral Adnexa: wnl 6. Posterior cul-de-sac: wnl IMPRESSION: 1. Mildly heterogeneous myometrium may reflect small fibroid change. No discrete focal fibroid is see n. 2. Suspected 2.1 cm corpus luteum of the left ovary. The previous 2.6 cm cyst of the right ovary had a similar appearance and has resolved in the interval.
--- NOTE | 2022-10-19 11:55 | MM ---
Reason for Exam: Screening (asymptomatic). Last mammogram was performed 1 year(s) and 3 month(s) ago. Patient History: Menarche at age 9. First Full-Term at age 26. Hormonal Contraceptives for 4 years from age 24 until age 29. Last menstrual period: 09/29/2022 Risk Values: Kierra 5 year model risk: 0.7%. NCI Lifetime model risk: 12.0%. Prior Study Comparison: 08/10/2021 Bilateral Screening Mammogram, [facility]. Tissue Density: There are scattered fibroglandular densities. Findings: Analyzed By CAD. Pattern appears symmetrical and stable. Some chronic nodularity is in the upper left mediolateral oblique view. No suspicious groups of microcalcifications, spiculated or lobular masses, architectural distortion or other secondary signs of malignancy are mammographically apparent. Overall Assessment: Benign, BI-RAD 2 Management: Screening Mammogram of both breasts in 1 year. A negative mammogram report should not preclude additional follow up of suspicious palpable abnormalities. Patient should continue monthly self breast exam. A clinical breast exam by your physician is recommended on an annual basis and results should be correlated with mammographic findings. Electronically signed and approved by: Roshan Marin D.O. Radiologis
== END | disposition home or self-care (01) ==
LOC: RADMAMWWP 14:43
PROVIDERS: ATTEND Family Medicine
DX: Z12.31 Encounter for screening mammogram for malignant neoplasm of breast (principal); N83.201 Unspecified ovarian cyst, right side; N85.8 Other specified noninflammatory disorders of uterus
CPT/HCPCS: 76830; 77063; 77067

== ENCOUNTER → 2023-01-14 | Outpatient (CLI) | payer MEDICAID ==
[2023-01-15 05:21] LABS: Basophils # (A) 0.06 X 10*3/uL (0.00-0.10); Basophils % (A) 0.7 %; Eosinophils # (A) 0.35 X 10*3/uL (0.04-0.35); Eosinophils % (A) 4.3 %; HCT 37.9 % (37.2-46.3); Immature Grans, Automated 0.4 %; Lymphocytes # (A) 1.65 X 10*3/uL (0.90-5.00); Lymphocytes % (A) 20.5 %; MCHC 31.7 g/dL (32.0-37.0); MCV 88.3 fL (80.0-97.0); Mean Platelet Volume 10.4 fL (9.5-12.2); Monocytes # (A) 0.58 X 10*3/uL (0.20-1.00); Monocytes % (A) 7.2 %; NRBC Per 100 WBC 0 /100 WBCS (0.0-0.0); Neutrophils # (A) 5.39 X 10*3/uL (1.80-7.70); Neutrophils % (A) 66.9 %; Platelet Count 196 X 10*3/uL (140-440); RBC 4.29 X 10*6/uL (4.10-5.20); RDW 13.5 % (11.5-14.5); WBC 8.06 X 10*3/uL (4.50-10.00)
[2023-01-15 06:23] LABS: ALT 25 U/L (8-44); AST 26 U/L (13-35); African American GFR (CKD) 123.9 (60.0-200.0); Albumin/Globulin Ratio 1.74 (1.60-3.17); Alkaline Phosphatase 70 U/L (41-126); BUN/Creat Ratio 19.14 Ratio (12.00-20.00); Blood Urea Nitrogen 13.4 mg/dL (9.0-27.0); Carbon Dioxide 23.2 mmol/L (20.0-27.5); Chloride 102 mmol/L (96-109); Chol/HDL Ratio 3.31 Ratio; Globulin 2.3 g/dL (1.6-3.3); Glucose 88 mg/dL (70-110); LDL Cholesterol,Calculated 97.1 mg/dL (0.0-131.0); Non-African American GFR(CKD) 106.9 (60.0-200.0); Potassium 4.1 mmol/L (3.5-5.5); Sodium 138 mmol/L (135-145); Total Protein 6.3 g/dL (6.2-8.2)
== END | disposition home or self-care (01) ==
LOC: LABWHC1 14:34
PROVIDERS: ATTEND Physician Assistant
DX: E66.01 Morbid (severe) obesity due to excess calories (principal); E03.9 Hypothyroidism, unspecified
CPT/HCPCS: 36415; 80053; 80061; 82306; 83036; 84439; 84443; 84481; 85025

== ENCOUNTER 2024-10-08 10:09 | Emergency (ER) | payer MEDICAID ==
--- NOTE | 2024-10-08 10:31 | ED ---
URI HPI - General Chief Complaint: Upper Respiratory Infection Stated Complaint: cough, congestion Time Seen by Provider: 10/08/24 10:30 Source: patient, RN notes reviewed Mode of arrival: ambulatory Limitations: no limitations - History of Present Illness Initial Comments: 43-year-old female presented to the ER for evaluation of cough and congestion. Patient states since 10-02-2024 she has been having a persisting cough, congestion and chest congestion. She states this has progressively worsening. Patient has been seen by urgent care and diagnosed with a viral illness. She was instructed to take [id number] medications and Flonase. She states she has been taking [id number] DayQuil, NyQuil, ibuprofen and Tylenol. Altagracia lomas reports she will cough so hard it causes her to vomit. She denies known fevers admits to chills. No chest pain, shortness of breath, abdominal pain, constipation/diarrhea, urinary complaints or peripheral edema. - Related Data Home Medications Medication Instructions Recorded Confirmed Multivitamins, Thera [Multivitamin] 1 tab PO DAILY 05/07/14 12/04/21 Pantoprazole Sodium [Protonix] 40 mg PO DAILY 05/07/14 12/04/21 Sertraline HCl [Zoloft] 50 mg PO 1200 10/30/21 12/04/21 Allergies Allergy/AdvReac Type Severity Reaction Status Date / Time sulfamethoxazole Allergy Rash/Hives Verified 10/08/24 10:16 [From Bactrim] trimethoprim [From Bactrim] Allergy Rash/Hives Verified 10/08/24 10:16 Review of Systems ROS Statement: Those systems with pertinent positive or pertinent negative responses have been documented in the HPI. ROS Other: All systems not noted in ROS Statement are negative. Past Medical History Past Medical History: GERD/Reflux Additional Past Medical History / Comment(s): palpitations, IJRREGULAR, HEAVY MENSES. + COVID 11/01/21 History of Any Multi-Drug Resistant Organisms: None Reported Past Surgical History: No Surgical Hx Reported Past Anesthesia/Blood Transfusion Reactions: No Reported Reaction Past Psychological History: No Psychological Hx Reported Smoking Status: Never smoker - Past Family History Mother Family Medical History: Cancer General Exam Limitations: no limitations General appearance: alert, in no apparent distress ENT exam: Present: normal exam, normal oropharynx, mucous membranes moist, TM's normal bilaterally (Fluid behind membrane no erythema) Neck exam: Present: normal inspection. Absent: tenderness, meningismus, l ymphadenopathy Respiratory exam: Present: normal lung sounds bilaterally. Absent: respiratory distress, wheezes, rales, rhonchi, stridor Cardiovascular Exam: Present: regular rate, normal rhythm, normal heart sounds. Absent: systolic murmur, diastolic murmur, rubs, gallop, clicks Neurological exam: Present: alert, oriented X3, CN II-XII intact Skin exam: Present: warm, dry, intact, normal color. Absent: rash Course Vital Signs 10/08/24 10/08/24 10/08/24 10:12 10:41 12:14 Temperature 98.2 F 98.4 F Pulse Rate 82 76 Respiratory 16 18 18 Rate Blood Pressure 151/89 134/84 O2 Sat by Pulse 100 97 Oximetry Medical Decision Making - Medical Decision Making Was pt. sent in by a medical professional or institution (, PA, ECCLESIASTICAL WORKER, urgent care, hospital, or correction...) When possible be specific @ -No Did you speak to anyone other than the patient for history (EMS, parent, family, police, friend...)? What history was obtained from this source @ -No Did you review nursing and triage notes (agree or disagree)? Why? @ -I reviewed and agree with nursing and triage notes Were old charts reviewed (outside hosp., previous admission, EMS record, old EKG, old radiological studies, urgent care reports/EKG's, correction records)? Report findings @ -No old charts were reviewed Differential Diagnosis (chest pain, altered mental status, abdominal pain women, abdominal pain men, vaginal bleeding, weakness, fever, dyspnea, syncope, headache, dizziness, GI bleed, back pain, seizure, CVA, palpatations, mental health, musculoskeletal)? @ -COVID, RSV, influenza, viral sinusitis, pneumonia, strep pharyngitis, this list is not meant to be all-inclusive EKG interpreted by me (3pts min.). @ -None done X-rays interpreted by me (1pt min.). @ -CXR interpreted by me negative for focal consolidation, pneumothorax or pleural effusions. CT interpreted by me (1pt min.). @ -None done U/S interpreted by me (1pt. min.). @ -None done What testing was considered but not performed or refused? (CT, X-rays, U/S, labs)? Why? @ -None What meds were considered but not given or refused? Why? @ -None Did you discuss the management of the patient with other professionals (professionals i.e. , PA, ECCLESIASTICAL WORKER, lab, RT, psych nurse, criminal justice social worker, wage conciliator, teacher, gifts officer, onsite case manager)? Give summary @ -No Was smoking cessation discussed for >3mins.? @ -No Was critical care preformed (if so, how long)? @ -No Were there social determinants of health that impacted care today? How? (Homelessness, low income, unemployed, alcoholism, drug addiction, transportation, low edu. Level, literacy, decrease access to med. care, [facility], rehab)? @ -No Was there de-escalation of care discussed even if they declined (Discuss DNR or withdrawal of care, Hospice)? DNR status @ -No What co-morbidities impacted this encounter? (DM, HTN, Smoking, COPD, CAD, Cancer, CVA, ARF, Chemo, Hep., AIDS, mental health diagnosis, sleep apnea, morbid obesity)? @ -None Was patient admitted / discharged? Hospital course, mention meds given and route, prescriptions, significant lab abnormalities, going to OR and other pertinent info. @ -Discharge. 43-year-old female presented to ER for evaluation of cough. History and physical exam completed. Vitals within normal limits. Patient in no signs of acute distress. Exam unimpressive.Viral swab and chest x-ray obtained. Viral swabs negative. Chest x-ray negative. Patient is stable for discharge as symptoms likely viral in nature. Strict return parameters discussed. Patient discharged in stable condition with follow-up to PCP. Patient verbally expressed understanding and agreement with care plan. Case discussed with ED attending, Dr. Lockhart. Undiagnosed new problem with uncertain prognosis? @ -No Drug Therapy requiring intensive monitoring for toxicity (Heparin, Nitro, Insulin, Cardizem)? @ -No Were any procedures done? @ -No Diagnosis/symptom? @ -Acute viral sinusitis/viral illness Acute, or Chronic, or Acute on Chronic? @ -Acute Uncomplicated (without systemic symptoms) or Complicated (systemic symptoms)? @ -Uncomplicated Side effects of treatment? @ -No Exacerbation, Progression, or Severe Exacerbation? @ -No Poses a threat to life or bodily function? How? (Chest pain, [place], [place], pneumonia, PE, COPD, DKA, ARF, appy, cholecystitis, CVA, Diverticulitis, Homicidal, Suicidal, threat to staff... and all critical care pts) @ -No - Lab Data Lab Results 10/08/24 Range/Units 10:40 Influenza Type A (PCR) Not Detected (Not Detectd) Influenza Type B (PCR) Not Detected (Not Detectd) RSV (PCR) Not Detected (Not Detectd) SARS-CoV-2 (PCR) Not Detected (Not Detectd) - Radiology Data Radiology results: report reviewed, image reviewed Disposition Clinical Impression: Viral infection, Acute viral sinusitis Disposition: HOME SELF-CARE Condition: Stable Additional Instructions: I recommend using Flonase, hkda-nfh-kqsoxzn ibuprofen and Tylenol for symptom control. I also recommend nasal lavage. Follow-up with PCP. Return to the ER for any new or worsening symptoms. Is patient prescribed a controlled substance at d/c from ED?: No Referrals: Marv Regalado PAC [REFERRING] - 1-2 days Time of Disposition: 11:57
[2024-10-08 10:45] VITALS: RESP 18
--- NOTE | 2024-10-08 11:23 | XR ---
EXAMINATION TYPE: XR chest 2V DATE OF EXAM: 10/08/2024 11:08 AM COMPARISON: 10/19/2018 CLINICAL INDICATION: Female, 43 years old with history of cough, , TECHNIQUE: PA and lateral views FINDINGS: The cardiomediastinal silhouette, aorta, and pulmonary vasculature are within normal limits. Hazy den sities relating to overlying soft tissue. Otherwise, lungs and pleural spaces are clear. IMPRESSION: No acute cardiopulmonary process. [facility], , 10/08/2024 11:21 AM
[2024-10-08 12:17] VITALS: BP 134/84; PULSE 76; TEMP 98.4
== END 2024-10-08 12:15 | disposition home or self-care (01) ==
LOC: SUPCPDRO 10:09 → EC 10:09
DX: J01.90 Acute sinusitis, unspecified (principal); B97.89 Other viral agents as the cause of diseases classified elsewhere; Z88.1 Allergy status to other antibiotic agents; Z88.2 Allergy status to sulfonamides
CPT/HCPCS: 71046; 87636; 99283

== ENCOUNTER → 2024-11-04 | Outpatient (CLI) | payer MEDICAID ==
[2024-11-04 15:01] LABS: Basophils # (A) 0.07 X 10*3/uL (0.00-0.10); Basophils % (A) 0.9 %; Eosinophils # (A) 0.24 X 10*3/uL (0.04-0.35); Eosinophils % (A) 3.1 %; HCT 42.7 % (37.2-46.3); HGB 13.1 g/dL (12.0-15.0); Lymphocytes # (A) 1.53 X 10*3/uL (0.90-5.00); Lymphocytes % (A) 20.1 %; MCH 27.1 pg (27.0-32.0); MCHC 30.7 g/dL (32.0-37.0); MCV 88.4 FL (80.0-97.0); Mean Platelet Volume 10.7 FL (9.5-12.2); Monocytes # (A) 0.57 X 10*3/uL (0.20-1.00); Monocytes % (A) 7.5 %; NRBC Per 100 WBC 0 X 10*3/uL (0.00-0.01); Neutrophils # (A) 5.18 X 10*3/uL (1.80-7.70); Platelet Count 226 X 10*3/uL (140-440); RBC 4.83 X 10*6/uL (4.10-5.20); RDW 12.1 % (11.5-14.5); WBC 7.62 X 10*3/uL (4.50-10.00)
[2024-11-04 15:31] LABS: Appearance,Urine Clear (Clear); Bilirubin,Urine Negative (Negative); Blood,Urine Negative (Negative); Color,Urine Yellow (Yellow); Ketones,Urine Negative (Negative); Nitrite,Urine Negative (Negative); Specific Gravity,Urine 1.018 (1.001-1.030); Urobilinogen,Urine 0.2 E.U./DL
[2024-11-04 15:51] LABS: ALT 20 U/L (8-44); AST 20 U/L (13-35); Albumin 4.1 g/dL (3.8-4.9); Albumin/Globulin Ratio 1.64 Ratio (1.60-3.17); Alkaline Phosphatase 70 U/L (41-126); BUN/Creat Ratio 19.29 Ratio (12.00-20.00); Blood Urea Nitrogen 13.5 mg/dL (9.0-27.0); Carbon Dioxide 24.3 mmol/L (21.6-31.8); Chloride 107 mmol/L (96-109); Chol/HDL Ratio 3.42 Ratio; Globulin 2.5 g/dL (1.6-3.3); Glucose 110 mg/dL (70-110); LDL Cholesterol,Calculated 92.5 mg/dL (0.0-131.0); Potassium 4.6 mmol/L (3.5-5.5); Sodium 140 mmol/L (135-145); T4, Free (Free Thyroxine) 0.93 ng/dL (0.80-1.80); Total Bilirubin 0.3 mg/dL (0.3-1.2); Total Protein 6.6 g/dL (6.2-8.2); VLDL Calculation 15.04 mg/dL (5.00-40.00)
[2024-11-04 17:05] LABS: Bacteria,Urine 1+ (None Seen)
== END | disposition home or self-care (01) ==
LOC: LABWHC1 09:07
PROVIDERS: ATTEND Physician Assistant
DX: Z00.00 Encounter for general adult medical examination without abnormal findings (principal); E03.9 Hypothyroidism, unspecified
CPT/HCPCS: 36415; 80053; 80061; 81001; 82306; 83036; 84439; 84443; 84481; 85025

== ENCOUNTER 2025-04-17 20:48 | Emergency (ER) | payer MEDICAID ==
[2025-04-17 20:52] VITALS: RESP 18; TEMP 97.7
[2025-04-17] MEDS: IBUPROFEN 600 MG TAB PO STA (21:13)
--- NOTE | 2025-04-17 21:32 | ED ---
General Adult HPI - General Chief complaint: Extremity Injury, Lower Stated complaint: R Foot Injury Time Seen by Provider: 04/17/25 20:54 Source: patient Mode of arrival: wheelchair Limitations: no limitations - History of Present Illness Initial comments: 44-year-old female presenting with chief complaint of right foot pain. [place] rock awkwardly twisting her foot. She is having pain mainly across the arch of her foot and then over the dorsal surface of the foot. No ankle pain. States that she tried to massage her foot and walk it off but she is having increasing pain with weightbearing and she is scheduled to work tomorrow so she wanted to make sure nothing was broken. No swelling or deformity. No break in the skin. - Related Data Home Medications Medication Instructions Recorded Confirmed Multivitamins, Thera [Multivitamin] 1 tab PO DAILY 05/07/14 12/04/21 Pantoprazole Sodium [Protonix] 40 mg PO DAILY 05/07/14 12/04/21 Sertraline HCl [Zoloft] 50 mg PO 1200 10/30/21 12/04/21 Allergies Allergy/AdvReac Type Severity Reaction Status Date / Time sulfamethoxazole Allergy Rash/Hives Verified 04/17/25 20:52 [From Bactrim] trimethoprim [From Bactrim] Allergy Rash/Hives Verified 04/17/25 20:52 Review of Systems ROS Statement: Those systems with pertinent positive or pertinent negative responses have been documented in the HPI. ROS Other: All systems not noted in ROS Statement are negative. Past Medical History Past Medical History: GERD/Reflux Additional Past Medical History / Comment(s): palpitations, IJRREGULAR, HEAVY MENSES. + COVID 11/01/21 History of Any Multi-Drug Resistant Organisms: None Reported Past Surgical History: No Surgical Hx Reported Past Anesthesia/Blood Transfusion Reactions: No Reported Reaction Past Psychological History: Depression Smoking Status: Never smoker Past Alcohol Use History: Occasional Past Drug Use History: None Reported - Past Family History Mother Family Medical History: Cancer General Exam Limitations: no limitations General appearance: alert, in no apparent distress Head exam: Present: atraumatic, normocephalic, normal inspection Eye exam: Present: normal appearance, EOMI Neck exam: Present: normal inspection. Absent: meningismus Respiratory exam: Absent: respiratory distress Cardiovascular Exam: Present: regular rate Right Foot/Toe exam: Present: normal inspection, full ROM, tenderness. Absent: swelling, deformity Neurovascular tendon exam: Present: no vascular compromise Neurological exam: Present: alert, oriented X3 Psychiatric exam: Present: normal affect, normal mood Skin exam: Present: warm, dry, normal color Course Vital Signs 04/17/25 04/17/25 20:50 22:39 Temperature 97.7 F 97.7 F Pulse Rate 75 68 Respiratory 18 18 Rate Blood Pressure 137/82 130/87 O2 Sat by Pulse 98 99 Oximetry Medical Decision Making - Medical Decision Making Was pt. sent in by a medical professional or institution (SADIQ Bhatt, ASSISTANT ACTIVITIES DIRECTOR, urgent care, hospital, or fdc...) When possible be specific @ -No Did you speak to anyone other than the patient for history (EMS, parent, family, police, friend...)? What history was obtained from this source @ -No Did you review nursing and triage notes (agree or disagree)? Why? @ -I reviewed and agree with nursing and triage notes Were old charts reviewed (outside hosp., previous admission, EMS record, old EKG, old radiological studies, urgent care reports/EKG's, fdc records)? Report findings @ -No old charts were reviewed Differential Diagnosis (chest pain, altered mental status, abdominal pain women, abdominal pain men, vaginal bleeding, weakness, fever, dyspnea, syncope, headache, dizziness, GI bleed, back pain, seizure, CVA, palpatations, mental health, musculoskeletal)? @ -Differential includes fracture, dislocation, sprain, strain, noninclusive last EKG interpreted by me (3pts min.). @ -As above X-rays interpreted by me (1pt min.). @ -X-ray negative for fracture. Mild soft tissue swelling is suggested CT interpreted by me (1pt min.). @ -None done U/S interpreted by me (1pt. min.). @ -None done What testing was considered but not performed or refused? (CT, X-rays, U/S, labs)? Why? @ -None What meds were considered but not given or refused? Why? @ -None Did you discuss the management of the patient with other professionals (professionals i.e. , SADIQ, ASSISTANT ACTIVITIES DIRECTOR, lab, RT, psych nurse, director social welfare, basic sciences dean, teacher, promotions officer, dependency case manager)? Give summary @ -No Was smoking cessation discussed for >3mins.? @ -No Was critical care preformed (if so, how long)? @ -No Were there social determinants of health that impacted care today? How? (Homelessness, low income, unemployed, alcoholism, drug addiction, transportation, low edu. Level, literacy, decrease access to med. care, half-way, rehab)? @ -No Was there de-escalation of care discussed even if they declined (Discuss DNR or withdrawal of care, Hospice)? DNR status @ -No What co-morbidities impacted this encounter? (DM, HTN, Smoking, COPD, CAD, Cancer, CVA, ARF, Chemo, Hep., AIDS, mental health diagnosis, sleep apnea, morbid obesity)? @ -None Was patient admitted / discharged? Hospital course, mention meds given and route, prescriptions, significant lab abnormalities, going to OR and other pertinent info. @ -44-year-old female presenting with chief complaint of foot injury. X-ray negative for fracture or dislocation. She is educated on today's findings and supportive management at home. Follow-up with PCP. Report back to ER with any new or worsening symptoms. Discussed return parameters and answered all questions. Patient conveyed verbal understanding and agreed to the plan. I discussed this case in detail with my attending Dr. Frias Undiagnosed new problem with uncertain prognosis? @ -No Drug Therapy requiring intensive monitoring for toxicity (Heparin, Nitro, Insulin, Cardizem)? @ -No Were any procedures done? @ -No Diagnosis/symptom? @ -Foot sprain Acute, or Chronic, or Acute on Chronic? @ -Acute Uncomplicated (without systemic symptoms) or Complicated (systemic symptoms)? @ -Uncomplicated Side effects of treatment? @ -No Exacerbation, Progression, or Severe Exacerbation? @ -No Poses a threat to life or bodily function? How? (Chest pain, [place], [place], pneumonia, PE, COPD, DKA, ARF, appy, cholecystitis, CVA, Diverticulitis, Homicidal, Suicidal, threat to staff... and all critical care pts) @ -Unlikely Disposition Clinical Impression: Foot sprain Disposition: HOME SELF-CARE Condition: Good Instructions (If sedation given, give patient instructions): Foot Sprain (ED) Additional Instructions: Follow-up with PCP. Report back to ER with any new or worsening symptoms. Motrin Tylenol as needed. Rest, ice, compress, elevate as needed Is patient prescribed a controlled substance at d/c from ED?: No Referrals: Chao Sahu MD [Primary Care Provider] - 1-2 days Time of Disposition: 22:27
--- NOTE | 2025-04-17 22:23 | XR ---
EXAMINATION TYPE: XR foot complete RT DATE OF EXAM: 04/17/2025 9:22 PM CLINICAL INDICATION:Female, 44 years old with history of pain; PHH, pain COMPARISON: None TECHNIQUE: XR foot complete RT examined in the AP, oblique, and lateral projections. FINDINGS: No evidence of any acute osseous pathology. Mild soft tissue swelling of the foot and ankle region i s suggested.. No radiopaque foreign body. Calcaneal plantar spurring is present. IMPRESSION: No evidence of acute fracture. Mild soft tissue swelling is suggested. [facility], , 04/17/2025 10:20 PM
[2025-04-17 22:55] VITALS: BP 130/87; PULSE 68
== END 2025-04-17 22:39 | disposition home or self-care (01) ==
LOC: EC 20:48
DX: S93.601A Unspecified sprain of right foot, initial encounter (principal); Z88.1 Allergy status to other antibiotic agents; Z88.2 Allergy status to sulfonamides; X50.1XXA Overexertion from prolonged static or awkward postures, initial encounter; Y92.832 Beach as the place of occurrence of the external cause
CPT/HCPCS: 99283